=== PATIENT | male | born 1995 | race Caucasian/White ===

== ENCOUNTER 2018-02-08 14:21 | Emergency (ER) | payer BC, MEDICAID ==
[2018-02-08 14:26] VITALS: BMI 29.2
[2018-02-08 14:28] VITALS: TEMP 98.6; O2SAT 99
--- NOTE | 2018-02-08 14:45 | C.PDOC ---
History Of Present Illness Patient is a 22 y/o male presenting to the ER status post "jumping on somebody' s foot and rolling right ankle" playing basketball yesterday. Patient denies any tingling, numbness, loss of consciousness or any other injuries. Time Seen by Provider: 02/08/18 14:34 Chief Complaint (Nursing): Lower Extremity Problem/Injury History Per: Patient History/Exam Limitations: no limitations Onset/Duration Of Symptoms: Hrs Current Symptoms Are (Timing): Still Present - Ankle/Foot Description Of Injury: Twisted Currently Unable To: Bear Weight Past Medical History Reviewed: Historical Data, Nursing Documentation, Vital Signs Vital Signs: Last Vital Signs Temp 98.6 F 02/08/18 14:26 Pulse 68 02/08/18 14:26 Resp 18 02/08/18 14:26 BP 148/93 H 02/08/18 14:26 Pulse Ox 99 02/08/18 14:53 - Medical History PMH: Fractures (RIGHT RING FINGER), HTN Denies: Chronic Kidney Disease Surgical History: Tonsillectomy - [facility] Procedures HEMORR CONTRL POST T & A (11/26/14) INJECT/INFUSE NEC (12/02/14) PHARYNGEAL BIOPSY (11/16/14) TONSILLECTOMY/ADENOIDEC (11/16/14) Family History: States: No Known Family Hx - Social History Hx Tobacco Use: No Hx Alcohol Use: No Hx Substance Use: No - Immunization History Hx Tetanus Toxoid Vaccination: Yes Hx Influenza Vaccination: Yes Hx Pneumococcal Vaccination: No Review Of Systems Except As Marked, All Systems Reviewed And Found Negative. Musculoskeletal: Positive for: Other (Right ankle pain and swelling) Neurological: Negative for: Weakness, Numbness Physical Exam - Physical Exam Appears: Non-toxic, No Acute Distress Skin: Normal Color, Warm, Dry Head: Atraumatic, Normacephalic Eye(s): bilateral: Normal Inspection Oral Mucosa: Moist Neck: Supple Chest: Symmetrical Cardiovascular: Rhythm Regular Respiratory: Normal Breath Sounds Extremity: Tenderness (Tenderness to medial and malleolar aspects of right foot. ), Other (Ecchymosis to anterior right ankle ) Extremity: Bilateral: Unable To Bear Weight (Right foot ) Pulses: Right Dorsalis Pedis: Normal Neurological/Psych: Oriented x3 ED Course And Treatment O2 Sat by Pulse Oximetry: 99 (RA) Pulse Ox Interpretation: Normal - Other Rad R ankle X-Ray: Interpreted by Me Interpretation: No acute fracture or dislocation noted Medical Decision Making Medical Decision Making: Order: Tylenol 650mg PO XR right ankle XR results discussed with patient. Advised tylenol/motrin at home. HUBER wrap applied by biomed tech. Crutches given. Advised weight bear as tolerated. PMD has already given patient a work excuse note. Disposition - Disposition Disposition: HOME/ ROUTINE Disposition Time: 16:15 Condition: FAIR Additional Instructions: JENNY MACIAS, thank you for letting us take care of you today. Your provider was Kathy Perkins MD and you were treated for RT ANKLE PAIN. The emergency medical care you received today was directed at your acute symptoms. If you were prescribed any medication, please fill it and take as directed. It may take several days for your symptoms to resolve. Return to the Emergency Department if your symptoms worsen, do not improve, or if you have any other problems. Please contact your doctor or call one of the physicians/clinics you have been referred to that are listed on the Patient Visit Information form that is included in your discharge packet. Bring any paperwork you were given at discharge with you along with any medications you are taking to your follow up visit. Our treatment cannot replace ongoing medical care by a primary care provider outside of the emergency department. Thank you for allowing the [facility] team to be part of your care today. If you had an X-Ray or CT scan: A Radiologist will review the ED reading if any change in treatment is needed we will contact you. If you had a blood, urine, or wound culture: It will take several days for the results, if any change in treatment is needed we will contact you. If you had an STI test: It will take 48 hours for the results. Please call after 1 week if you have not heard back. Instructions: Ankle Sprain (DC) Forms: [employer] (Italian) - Clinical Impression Clinical Impression: Right ankle sprain, Contusion of right ankle - Scribe Statement The provider has reviewed the documentation as recorded by the Valerieibe Kayce Price All medical record entries made by the Scribe were at my direction and personally dictated by me. I have reviewed the chart and agree that the record accurately reflects my personal performance of the history, physical exam, medical decision making, and the department course for this patient. I have also personally directed, reviewed, and agree with the discharge instructions and disposition.
--- NOTE | 2018-02-08 16:09 | RAD ---
PROCEDURE: Right Ankle Radiographs. HISTORY: ankle injury COMPARISON: None FINDINGS: BONES: Normal. No fracture. JOINTS: Normal. No osteoarthritis. Ankle mortise maintained. Talar dome intact SOFT TISSUES: Lateral soft tissue swelling, nonspecific. OTHER FINDINGS: None. IMPRESSION: No acute fracture. Lateral soft tissue swelling.
[2018-02-08 16:32] VITALS: BP 133/80; PULSE 60; RESP 20
== END 2018-02-08 16:32 | disposition home or self-care (01) ==
LOC: C.ER 14:21
DX: S93.401A Sprain of unspecified ligament of right ankle, initial encounter (principal); S90.01XA Contusion of right ankle, initial encounter; X58.XXXA Exposure to other specified factors, initial encounter; Y93.67 Activity, basketball